=== PATIENT | female | born 1990 | race Asian ===

== ENCOUNTER → 2017-11-19 | Outpatient (CLI) | payer OTHER | LOC: FIMAGING 07:23 | PROVIDERS: ATTEND Advanced Practice Midwife | DX: O35.8XX0 Maternal care for other (suspected) fetal abnormality and damage, not applicable or unspecified (principal); Z3A.21 21 weeks gestation of pregnancy ==

== ENCOUNTER → 2018-02-19 | Outpatient (CLI) | payer OTHER | LOC: FIMAGING 08:23 | PROVIDERS: ATTEND Advanced Practice Midwife | DX: O44.23 Partial placenta previa NOS or without hemorrhage, third trimester (principal); Z3A.34 34 weeks gestation of pregnancy ==

== ENCOUNTER 2018-04-04 23:44 | Inpatient (IN) | payer OTHER ==
[2018-04-05] MEDS ORDERED: EPSOM SALT 454 GM TP PRN (00:07)
[2018-04-05] MEDS ORDERED: AMMONIA AROMATIC 1 EACH AMP IH PRN (00:07)
[2018-04-05] MEDS ORDERED: MISOPROSTOL 200 MCG TAB PO PRN (00:07)
[2018-04-05] MEDS ORDERED: OLIVE OIL 118 ML BTL MISC PRN (00:07)
[2018-04-05] MEDS ORDERED: OXYTOCIN/RINGERS LACTATE 1,000 ML IV PRN (00:07)
[2018-04-05] MEDS ORDERED: LIDOCAINE 1% 300 MG/30 ML SDV SC PRN (00:07)
[2018-04-05] MEDS ORDERED: LR 1,000 ML IV PRN (00:07)
[2018-04-05] MEDS ORDERED: TERBUTALINE SULFATE 1 MG/ML VIAL IV PRN (00:07)
--- NOTE | 2018-04-05 00:07 | PDGENHP ---
History and Physical History and Physical: CARE: [facility] HPI: Patient is a 27 yo G 1 P 0 @ 40+3 weeks that presents to L&D with complaints of strong uterine contractions since last night. Came to center in AM on 04/04 and found to be 4 cm dilated. Returned home and labored at home all day and progressed to 8 cm at approximately 2300 on 04/04. Transferred to hospital at this time for labor epidural. EDC: 04/01/18 which is based on LMP: 06/23/17 which is known and consistent with Ultrasound at 8 weeks. Her is complicated by: marginal cord insertion with normal growth u/ s in 3rd trimester, dilated renal pelvis which resolved at 3rd trimester u/s. Review of Systems: Constitutional: Denies any fever, chills, or fatigue HEENT: denies any visual changes, difficulty swallowing, hearing loss Cardiovascular: Denies any chest pain, palpitations, leg swelling Respiratory: denies any cough, wheezing, or shortness of breathe GI: Denies any nausea, vomiting, diarrhea, constipation : denies any dysuria, urgency, frequency, vaginal bleeding Musculoskeletal: denies any muscle or bone pain Skin: denies any rashes Neuro: denies any headache, seizures, lightheadedness, dizziness, or loss of consciousness Psychiatric: denies any depression, anxiety, or SI/HI thoughts HISTORY: Previous OB history: nullip Social history: Family history: non-contributory Past medical history: denies Past surgical history: denies Medications: PNV Allergies (list reaction): NKDA LABS: Rh: B+ ABS: Neg Rubella: Immune HbsAg: NR HIV: NR VDRL: NR 1hr: 71 GC: Neg Chlamydia: Neg Pap: Normal GBS: neg BMI: (prepreg) = 20 PHYSICAL EXAM: Constitutional: WN, A&Ox3 HEENT: normocephalic atraumatic, supple Heart: RRR, no murmur Chest: CTA-B Skin: warm, dry, intact Abdomen: Soft, nontender, gravid SVE: 8/90/-2 Extremities: no edema, negative homans sign Neuro: grossly normal Psych: normal affect assessment: FHT baseline 155, +accels, occasional late decels, moderate variability Contractions: toco q 3-4 min Assessment: 1) 27 yo G 1 P 0 with IUP@ 40.3 weeks 2) active labor 3) GBS neg 4) Cat 2 FHR tracing 5) desires labor epidural Plan: 1) Admit to L&D 2) anticipate 3) desires EDGARD
[2018-04-05 00:38] LABS: PLATELET COUNT 209 10^3/uL (150-400)
[2018-04-05] MEDS ORDERED: BUPIVACAINE 0.25% 10 ML SDV ONE (00:42)
[2018-04-05] MEDS ORDERED: fentaNYL 100 MCG/2 ML INJ ONE (00:42)
[2018-04-05] MEDS ORDERED: PHENYLEPHRINE HCL 100 MCG/ML SYR ONE (00:44)
[2018-04-05] MEDS ORDERED: fentaNYL 2MCG/ML/BUP 0.1% RTU 100 ML BAG EP ONE (01:08)
[2018-04-05] MEDS ORDERED: NALOXONE HCL 0.4 MG/ML INJ IVP PRN (01:17)
[2018-04-05] MEDS ORDERED: PHENYLEPHRINE HCL 100 MCG/ML SYR IVP PRN (01:17)
[2018-04-05] MEDS ORDERED: ONDANSETRON 4 MG/2 ML VIAL IVP PRN (01:17)
--- NOTE | 2018-04-05 01:21 | PREANESOB ---
Obstetric Pre-Anesthesia Info - General Info : 1 Para: 0 ANAY: 03/27/18 Gestational Age: 41 week(s) and 2 day(s) Anesthesia Allergies/Adverse Reactions: Allergy/AdvReac Type Severity Reaction Status Date / Time No Known Drug Allergies Allergy Verified 04/05/18 00:06 Visit Medications: Generic Name Dose Route Start Last Admin Trade Name Freq PRN Reason Stop Dose Admin Ammonia (Aromatic Spirit) 1 each 04/05/18 00:07 Ammonia Aromatic IH 04/15/18 00:06 ONCE PRN Fainting Diphenhydramine HCl 25 - 50 mg 04/05/18 01:17 Benadryl Injection IVP 10/02/18 01:16 Q6HRS PRN Itching Ephedrine Sulfate 10 mg 04/05/18 01:17 Ephedrine Sulfate IV 10/02/18 01:16 .Q2M PRN Hypotension Lactated Ringer's 1,000 mls @ 0 mls/hr 04/05/18 00:07 Lr IV 04/06/18 00:06 PRN PRN SEE PROTOCOL CONDITIONS Protocol Per Protocol Oxytocin/Lactated Ringer's 1,000 mls @ 0 mls/hr 04/05/18 00:07 Pitocin 20 Units/Lr (Premix) IV PRN PRN Post bleeding As Directed Ibuprofen 600 mg 04/05/18 00:07 Motrin PO ONCE PRN post , pain Lidocaine HCl 300 mg 04/05/18 00:07 Lidocaine Hcl 1% SC 10/02/18 00:06 ONCE PRN episiotomy Magnesium Sulfate 454 gm 04/05/18 00:07 Epsom Salt TP 10/02/18 00:06 Q1H PRN perineal discomfort Misoprostol 800 - 1,000 mcg 04/05/18 00:07 Cytotec PO 10/02/18 00:06 ONCE PRN Vaginal Atony/Bleeding [place] Oil 118 ml 04/05/18 00:07 Sweet Oil MISC 10/02/18 00:06 ONCE PRN perineal massage Terbutaline Sulfate 0.25 mg 04/05/18 00:07 Brethine IV 10/02/18 00:06 ONCE PRN Tachysystole Discontinued Medications Generic Name Dose Route Start Last Admin Trade Name Freq PRN Reason Stop Dose Admin Bupivacaine HCl Confirm 04/05/18 00:42 Sensorcaine 0.25% Sdv Administered 04/05/18 00:43 Dose 10 ml .ROUTE .STK-MED ONE Fentanyl Confirm 04/05/18 00:42 Sublimaze Administered 04/05/18 00:43 Dose 100 mcg .ROUTE .STK-MED ONE Fentanyl/Bupivacaine HCl Confirm 04/05/18 01:08 Fentanyl/Bupivacaine/Ns 2 Mcg/Ml 0.1% (Premix Administered 04/05/18 01:09 Dose 100 ml EP .STK-MED ONE Phenylephrine HCl Confirm 04/05/18 00:44 Neosynephrine Administered 04/05/18 00:45 Dose 1,000 mcg .ROUTE .STK-MED ONE - Anesthesia History Response to Local Anesthetics: Normal Anesthesia & Operative History: No Prior Problems - Vital Signs Height/Weight (Nursing): Height 167.64 cm Weight 71.214 kg - Focused Exam Neck exam: FROM Mallampati Score: Class 1 Mouth exam: normal dental/mouth exam Pulmonary: no respiratory distress Cardiovascular: regular rate and rhythym Labs: 04/05/18 00:10 Patient ABO/Rh B POSITIVE 04/05/18 00:10 - Plan Anesthetic Plan: PCEA Consent Signed and on Chart: Yes
[2018-04-05] MEDS ORDERED: fentaNYL 2MCG/ML/BUP 0.1% RTU 100 ML EP SCH (01:30)
[2018-04-05] MEDS ORDERED: LR 500 ML IV SCH (01:30)
--- NOTE | 2018-04-05 02:01 | OBPROG ---
Labor Progress Note Assessment/Plan: Assessment: Plan: Objective: 04/05/18 00:10 Patient ABO/Rh B POSITIVE 04/05/18 00:10 - SVE Dilation (cm): 9 Effacement (%): 90 Station: -1 Membranes: Intact - Contraction Pattern Assessment Current Contraction Pattern: Regular - FHR Assessment James FHR (bpm): 150 (variable and occasional late deceleration) FHR Pattern Variability: Moderate FHR Category: 2 Oxytocin Orders Assessment - Pre-Induction/Augmentation Assessment Gestational Age: 41 week(s) and 2 day(s) ICD10 Worksheet Patient Problems: Problems Problem Status Onset 40 weeks gestation of Acute Prolonged first stage (of labor) Acute
[2018-04-05] MEDS ORDERED: TERBUTALINE SULFATE 1 MG/ML VIAL ONE (02:28)
[2018-04-05] MEDS ORDERED: OXYTOCIN 10 UNIT/ML VIAL ONE (02:28)
[2018-04-05] MEDS ORDERED: OLIVE OIL 118 ML BTL ONE (02:28)
[2018-04-05] MEDS ORDERED: MISOPROSTOL 200 MCG TAB ONE (02:28)
[2018-04-05] MEDS ORDERED: AMMONIA AROMATIC 1 EACH AMP IH ONE (02:28)
[2018-04-05] MEDS ORDERED: LIDOCAINE 1% 300 MG/30 ML SDV ONE (02:28)
--- NOTE | 2018-04-05 04:10 | OBDEL ---
Info Type: Vaginal Presentation at Delivery: Vertex L&D Analgesia/Anesthesia Type: Epidural GBS+: No - Care Provider Sailing Officer/AM[employer]ICAN STUD[employer] PROFESSOR: Amarilis Robles Indications for Delivery: Spontaneous Labor, SROM Vaginal Delivery - Delivery Provider Delivery Physician/CNM: Gabrielle Traylor - Labor and Delivery Onset of Contractions Date: 04/04/18 Onset of Contractions Time: 18:00 Onset of Contractions Type: Spontaneous Rupture of Membranes Date: 04/05/18 Rupture of Membranes Time: 02:30 Rupture of Membranes Type: Spontaneous Amniotic Fluid Color: Thick Meconium Dilation Complete Date: 04/05/18 Dilation Complete Time: 02:15 Placenta Delivery Date: 04/05/18 Placenta Delivery Time: 03:30 Total Hours of Labor: 9 Laceration: 1st Degree, Other (Specify) (periurethral) Repair: 3-0, 4-0, Vicryl, Chromic Vaginal Sponge Count Correct: Yes Vaginal Needle Count Correct: Yes Vaginal Sweep Performed: Yes EBL: 250 Delivery Events: Other (Specify) (variable decels between each contraction. Dr. Sands called to room to evaluate for vacuum, but pt continued to make good progress with contractions.) Delivery Comment: mom progressed rapidly to complete after epidural placement. FHT 150-160 with variable decels and late decelerations noted with approximately 50 % of contractions. O2 and position changes were used to manage decelerations. Mom pushed well during second stage and delivered viable male infant over 1st deg perineal laceration. Shoulders and body followed atraumatically with maternal pushing effort. Infant placed on abdomen and evaluated by AMERICAN STUDIES PROFESSOR. Data ANAY: 03/27/18 Gestational Age: 41 week(s) and 2 day(s) James Delivery Date: 04/05/18 Delivery Time: :23 Sex of Infant: Male Score (1 Min): 8 Score (5 Min): 9 ICD10 Worksheet Patient Problems: Problems Problem Status Onset 40 weeks gestation of Acute (normal spontaneous vaginal delivery) Acute Prolonged first stage (of labor) Acute - ICD10 Problem Qualifiers (1) (normal spontaneous vaginal delivery)
[2018-04-05] MEDS ORDERED: ACETAMINOPHEN 325 MG TAB PO PRN (04:13)
[2018-04-05] MEDS: IBUPROFEN 600 MG TAB PO PRN ×3 (04:13→19:37)
[2018-04-05] MEDS ORDERED: HYDROCORTISONE 0.5% CREAM TP PRN (04:13)
--- NOTE | 2018-04-05 06:43 | OBPP ---
Progress Note Assessment/Plan: Assessment: Plan: Objective: 04/05/18 00:10 Patient ABO/Rh B POSITIVE 04/05/18 00:10 Pt has been bleeding since delivery. VSS reassuring. Dr. Sands called to room for u/s endometrial stripe is normal. Clots removed from cervix and vaginal vault. Total EBL is 1000 ml at this time. Will continue to monitor. Uterine Position/Fundal Height: At Umbilicus Uterine Tone: Firm
[2018-04-05] MEDS ORDERED: METHYLERGONOVINE MAL 0.2 MG/ML INJ ONE (07:57)
[2018-04-05] MEDS ORDERED: HEMABATE 250 MCG/1 ML AMP IM ONE ×2 (10:01→10:56)
[2018-04-05] MEDS ORDERED: ceFAZolin 2 GM/DEXTROSE 100 ML IV ONE (10:11)
[2018-04-05] MEDS ORDERED: DIPHENOXYLATE/ATROPINE LOMOTIL 1 TAB PO ONE (10:57)
[2018-04-05] MEDS ORDERED: METHYLERGONOVINE MAL 0.2 MG/ML INJ IM ONE (11:31)
--- NOTE | 2018-04-05 19:42 | OBPP ---
Progress Note Assessment/Plan: Assessment: I met with pt and discussed her ongoing bleeding - by the time I assumed her care she had had 1847cc of total EBL and had had Cytotec, Pitocin and methergine. I asked RN to give 250mcg of Hemabate this AM upon my arrival. I performed thorough exam and was able to fully visualize the cervix all the way around - no lacerations. I did perform a curettage in the room with Hunters curette and removed small pieces of joseph tissue that did appear to be retained POCs. Pt tolerated this well and her bleeding was really minimal following those interventions. CBC in the AM. 2g of Ancef due to instrumentation. JM Subjective/ Course: I was asked to evaluate Yessenia this AM as she was continuing to have ongoing slow vaginal bleeding after her delivery. Subjectively feeling okay, but very tired. Objective: 04/05/18 00:10 Patient ABO/Rh B POSITIVE 04/05/18 00:10 Temp Pulse Resp BP Pulse Ox 37.5 C 88 18 110/66 98 04/05/18 14:15 04/05/18 14:15 04/05/18 14:15 04/05/18 14:15 04/05/18 14:15 Uterine Position/Fundal Height: Umbilicus -2 Uterine Tone: Firm (Bedside US after curettage showed uniformly thin stripe, no masses, well contracted)
[2018-04-06] MEDS: IBUPROFEN 600 MG TAB PO PRN ×4 (01:10→21:45)
[2018-04-07] MEDS: IBUPROFEN 600 MG TAB PO PRN ×3 (03:29→17:49)
[2018-04-07 07:00] LABS: PLATELET COUNT 150 10^3/uL (150-400)
--- NOTE | 2018-04-07 10:05 | OBPP ---
Progress Note Assessment/Plan: Assessment: PPD #1, stable Significant anemia post acute blood loss; minimal symptoms Plan: 04/05/2018 1530 1) Pt would like to wait for repeat CBC in the morning to determine if a blood transfusion is necessary. Plans on sleeping as much as she can today thinking she will feel better after that. 2) CBC in the morning 3) Continue pain medications as ordered Subjective/ Course: I was asked to evaluate Yessenia this AM as she was continuing to have ongoing slow vaginal bleeding after her delivery. Subjectively feeling okay, but very tired. 04/06/2018 1530 Reviewed HCT result with patient. She reports being able to ambulate today without feeling dizzy, though yesterday she did have a couple of times she felt dizzy. Overall she states she is feeling ok though she does feel tired, feels like she is in a fog and her hearing is "like listening through a tube". She plans on trying to get more sleep today. Reports going well since baby has woken up and is more alert. Pain managed well with medication. Bleeding has been like a moderate period since have the retained tissue removed yesterday. Objective: 04/07/18 06:15 Patient ABO/Rh B POSITIVE 04/05/18 00:10 Temp Pulse Resp BP Pulse Ox 36.3 C 88 15 107/69 99 04/07/18 08:51 04/07/18 08:51 04/07/18 08:51 04/07/18 08:51 04/07/18 08:51 Hct 04/05 22.4 Pt is alert and coherent. Able to answer questions without difficulties Nipples intact bilaterally, breasts soft Bleeding minimal Uterine Position/Fundal Height: Umbilicus -3 Uterine Tone: Firm
--- NOTE | 2018-04-07 10:05 | OBPP ---
Progress Note Assessment/Plan: Assessment: PPD #2, stable Severe anemia post acute hemorrhage, symptomatic Plan: 04/07/18 10:05 1) Consulted with Dr Amezquita who concurs that a blood transfusion is indicated 2) Reviewed in detail recommendation with patient and partner, as well as consent forms. She did consent to the blood transfusion. 3) 2 units of PRBC's ordered as well as labs 4) Advised need to delay discharge until tomorrow. Subjective/ Course: I was asked to evaluate Yessenia this AM as she was continuing to have ongoing slow vaginal bleeding after her delivery. Subjectively feeling okay, but very tired. 04/07/18 10:05 Pt reports continued fatigue however ambulating without difficulty, sitting up in chair baby while we discussed drop in Hct/Hgb. Baby is nursing well, needing just some minor adjustments with latch. Objective: 04/07/18 06:15 Patient ABO/Rh B POSITIVE 04/05/18 00:10 Temp Pulse Resp BP Pulse Ox 36.3 C 88 15 107/69 99 04/07/18 08:51 04/07/18 08:51 04/07/18 08:51 04/07/18 08:51 04/07/18 08:51 Nipples intact bilaterally, breasts nichole bleeding minimal Drop in HCT from 22.4 to 20.2 Uterine Position/Fundal Height: Umbilicus -2 Uterine Tone: Firm
[2018-04-08] MEDS: IBUPROFEN 600 MG TAB PO PRN ×3 (00:29→13:39)
[2018-04-08 04:23] LABS: PLATELET COUNT 201 10^3/uL (150-400)
[2018-04-08 08:31] VITALS: BP 118/70
--- NOTE | 2018-04-08 09:56 | OBGCSDC ---
General Delivery Information - General Info : 1 Para: 1 Abortions: 0 Type: Vaginal L&D Analgesia/Anesthesia Type: Epidural, Local Admission Date: 04/04/18 Labs: Patient ABO/Rh B POSITIVE 04/05/18 00:10 Hct 29.7 % (38.0-47.0) L 04/08/18 03:55 - Hospital Course : I was asked to evaluate Yessenia this AM as she was continuing to have ongoing slow vaginal bleeding after her delivery. Subjectively feeling okay, but very tired. 04/07/18 10:05 Pt reports continued fatigue however ambulating without difficulty, sitting up in chair baby while we discussed drop in Hct/Hgb. Baby is nursing well, needing just some minor adjustments with latch. 04/08/18 09:56 S) Pt doing well, reports min pain and bleeding. she is ambulating and voiding without difficulty, states improvement since blood transfusion. She is . She desires discharge home today. She has her parents able to help for the next couple months. O) VSS, afebrile constitutional: WNF, A&Ox3 HEENT: normocephalic, atraumatic, supple Heart: RRR, No murmur Chest: CTA-B Breasts: soft, nontender, not engorged, nipples intact bilaterally Abdomen: Soft, nontender Uterus: Firm at U-2 Lochia: Minimal rubra Perineum: healing well Extremities: Trace edema, and negative Agnes's sign Neuro: Grossly normal A) 27-year-old S/P s/p PPH with D&C and 2 units of PRBC PPD#3 Anemia P) Discharge home today cont iron supplements Continue Pelvic rest x6wks Discussed danger signs (infection, preeclampsia, depression, heavy bleeding, etc ) RTO in 1-2/4/6 weeks 04/08/18 10:18 04/08/18 10:21 Vaginal - Delivery Provider Delivery Physician/CNM: Gabrielle Traylor - Diagnosis Labor: Spontaneous Rupture of Membranes Type: Spontaneous Amniotic Fluid Color: Thick Meconium Laceration: 1st Degree, Other (Specify) (periurethral) Repair: 3-0, 4-0, Vicryl, Chromic Delivery Events: Other (Specify) (variable decels between each contraction. Dr. Sands called to room to evaluate for vacuum, but pt continued to make good progress with contractions.) - Delivery EBL: 250 Data ANAY: 03/27/18 Gestational Age: 41 week(s) and 5 day(s) James Delivery Date: 04/05/18 Delivery Time: 03:23 Sex of Infant: Male Hellier Weight (gm): 3352 g Score (1 Min): 8 Score (5 Min): 9
== END 2018-04-08 14:15 | disposition home or self-care (01) | DRG 806 ==
LOC: FLD 23:44 → FOB 04-05 13:45
PROVIDERS: ADMIT Advanced Practice Midwife; ATTEND Advanced Practice Midwife
PROC: 0HQ9XZZ Repair Perineum Skin, External Approach (ICD-10-PCS; principal; 2018-04-05)
PROC: 10E0XZZ Delivery of Products of Conception, External Approach (ICD-10-PCS; principal; 2018-04-05)
PROC: 30233N1 Transfusion of Nonautologous Red Blood Cells into Peripheral Vein, Percutaneous Approach (ICD-10-PCS; 2018-04-07)
DX: O72.1 Other immediate postpartum hemorrhage (principal); Z37.0 Single live birth; D62 Acute posthemorrhagic anemia; Z3A.40 40 weeks gestation of pregnancy; O99.03 Anemia complicating the puerperium; O70.0 First degree perineal laceration during delivery
CPT/HCPCS: J0690; J2210; J2370; J2590; J3010; J3105; P9016

== ENCOUNTER → 2018-05-04 | Outpatient (CLI) | payer OTHER | LOC: FLACT 13:33 | PROVIDERS: ATTEND Advanced Practice Midwife | DX: O92.29 Other disorders of breast associated with pregnancy and the puerperium (principal) | CPT/HCPCS: G0463 ==